=== PATIENT | male | born 1940 | race Caucasian/White ===

== ENCOUNTER → 2017-04-15 | Outpatient (CLI) | payer MEDICARE ==
[~2017-04-15] MED LIST: ALFU10TA PO; AMLO10TA; AMLO10TA PO; AMLO5TAB2 PO; ASP325TEC PO; ATOR80TA2 PO; ATOR80TA75; ATOR80TA75 PO; CPR500T PO; DOXY100C2; DOXY100C2 PO; FINA5TAB6 PO; LISI1TAB6 PO; LISI1TAB8 PO; NFNEB10T PO; POLY255P PO
--- NOTE | 2017-04-15 16:14 | Diagnostic Imaging Report ---
PROCEDURE: MRI lumbar spine. TECHNIQUE: Multiplanar, multisequence MRI of the lumbar spine was performed without contrast. INDICATION: Back pain. COMPARISON: 05/11/13 exam. FINDINGS: There is satisfactory alignment of the lumbar spine. The vertebral body heights are preserved. There is disc desiccation at all levels. There is mild disc height loss at L3/L4 and L5/S1 levels. There is mild bone marrow edema around endplates at L5/S1 disc. There is also mild marrow edema in the pars interarticularis of L4 and L5 levels bilaterally. This is favored to be secondary to facet degenerative changes. The cauda equina and conus medullaris appear grossly unremarkable. T12/L1: There is a minimal disc protrusion at the left paracentral region with an annular tear seen. No central canal, lateral recess or foraminal stenosis. L1/L2: No disc herniation. No spinal canal or foraminal stenosis. L2/L3: No disc herniation. There is mild facet hypertrophy. No central canal, lateral recess or foraminal stenosis. L3/L4: There is a mild disc bulge and mild facet hypertrophy seen. There is no central canal or lateral recess stenosis. The foramina demonstrate mild narrowing on the right side and moderate narrowing on the left. L4/L5: There is a mild disc bulge and moderate facet hypertrophy. No central canal or lateral recess stenosis. There is moderate foraminal stenosis. L5/S1: There is minimal disc bulge and mild facet hypertrophy. No central canal or lateral recess stenosis. There is severe foraminal stenosis on the right compressing the exiting right L5 spinal nerve. Moderate foraminal stenosis on the left side is seen. When compared to 05/11/2013, the foraminal stenosis on the right at L5/S1 is worse. Also previously seen intraforaminal lesion on the left side at L3/L4, probably an extruded disc is not present at this time. 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 Other findings as above. Dictated by: Dictated on workstation # [id number]
== END ==
LOC: RAD 15:02
PROVIDERS: ATTEND Family Medicine
DX: M54.16 Radiculopathy, lumbar region (principal); M48.06 Spinal stenosis, lumbar region
CPT/HCPCS: 72148

== ENCOUNTER → 2019-07-05 | Outpatient (CLI) | payer MEDICARE ==
[~2019-07-05] MED LIST changes: +ACET325T38 PO; +AMLO5TAB9 PO; +ASPI325T32 PO; +ATOR40TA70 PO; +ATOR80TA76 PO; +CARV3.12 PO; +CYAN250010 PO; +LACT1CAP74 PO; +METO-333 PO; +TAMS0.4C98 PO
== END ==
LOC: RAD 11:43
PROVIDERS: ATTEND Internal Medicine Cardiovascular Disease
DX: I08.0 Rheumatic disorders of both mitral and aortic valves (principal); I25.10 Atherosclerotic heart disease of native coronary artery without angina pectoris; I10 Essential (primary) hypertension; E78.2 Mixed hyperlipidemia; Z82.49 Family history of ischemic heart disease and other diseases of the circulatory system
CPT/HCPCS: 93306

== ENCOUNTER → 2019-07-07 | Outpatient (CLI) | payer MEDICARE ==
[~2019-07-07] VITALS: Ht 165.1 cm; Wt 71.2 kg
[~2019-07-07] MED LIST changes: -ACET325T38 PO; -AMLO5TAB9 PO; -ASPI325T32 PO; -ATOR40TA70 PO; -ATOR80TA76 PO; -CARV3.12 PO; +CATHETER FLUSH 10 ML SYR IV PRN; -CYAN250010 PO; -LACT1CAP74 PO; -METO-333 PO; +REGADENOSON 0.4 MG/5 ML SYR (LEXISCAN) IV ONE; -TAMS0.4C98 PO
--- NOTE | 2019-07-08 09:33 | STRESS TEST ---
DATE OF SERVICE: LEXISCAN MYOVIEW STRESS TEST REFERRING PHYSICIAN: Dr. Hassan. Baseline heart rate is 74, baseline blood pressure 136/85. Baseline EKG is sinus rhythm with left bundle branch block. In summary, the patient was injected with 9.9 mCi of technetium-99 Myoview and the resting images were obtained. Then, the patient received 0.4 mg of Lexiscan followed by 30.2 mCi of technetium-99 Myoview. Throughout the test, there were no EKG changes. The resting and stress images were reviewed and compared in the short axis, horizontal long axis, and vertical long axis views. Review of the images showed decreased uptake involving the mid to apical anterior wall and anterior septum with subtle reversibility. SSS is 7, SDS 1, TID value is increased of 1.22. On the gated images, the left ventricle appeared to be in normal size with hypokinesia of the anterior wall and anterior septum. Calculated ejection fraction 56%. CONCLUSION: 1. The patient tolerated Lexiscan well. 2. Baseline left bundle branch block persisted throughout test. 3. Fixed defect involving the mid to apical anterior wall and anterior septum with mild jordan-infarct reversibility. 4. Transient ischemic dilatation of 1.22 value. 5. Normal left ventricular size with mild hypokinesia of the anterior wall and anterior septum. Calculated ejection fraction 56%. Job ID: [id number] DocumentID: [id number] Dictated Date: 07/08/2019 07:12:33 Case Coordinator Date: 07/08/2019 09:32:30 Dictated By: MANJU AGOSTO MD
== END ==
LOC: RAD 11:42
PROVIDERS: ATTEND Internal Medicine Cardiovascular Disease
DX: I44.7 Left bundle-branch block, unspecified (principal); I51.89 Other ill-defined heart diseases; I25.10 Atherosclerotic heart disease of native coronary artery without angina pectoris; I10 Essential (primary) hypertension; E78.2 Mixed hyperlipidemia; Z82.49 Family history of ischemic heart disease and other diseases of the circulatory system
CPT/HCPCS: 78452; 93017

== ENCOUNTER → 2019-08-03 | Outpatient (CLI) | payer MEDICARE ==
[~2019-08-03] MED LIST changes: +ACET325T38 PO; +AMLO5TAB9 PO; +ASPI325T32 PO; +ATOR40TA70 PO; +ATOR80TA76 PO; +CARV3.12 PO; +CYAN250010 PO; +HOLD METFORMIN - RECEIVED CONTRAST 20 ML VIAL IV SCH; +IOHEXOL 350 MG/ML 100 ML (OMNIPAQUE 350) VIAL IV ONE; +LACT1CAP74 PO; +METO-333 PO; +NS 100 ML (IVPB) BAG IV ONE; -REGADENOSON 0.4 MG/5 ML SYR (LEXISCAN) IV ONE; +TAMS0.4C98 PO
[2019-08-03 11:15] LABS: BUN/CREATININE RATIO 14; CREATININE SERUM 0.77 MG/DL (0.60-1.30); GFR ESTIMATED > 60
--- NOTE | 2019-08-03 12:35 | Diagnostic Imaging Report ---
PROCEDURE: CT chest with contrast only. TECHNIQUE: Multiple contiguous axial images were obtained through the chest after administration of intravenous contrast. Auto Exposure Controls were utilized during the CT exam to meet ALARA standards for radiation dose reduction. INDICATION: Lung nodule. FINDINGS: There are no prior CT chest examinations available for comparison. The recent plain film examination of the chest performed on 07/14/2019 did note a 9 mm nodular density overlying the right mid lung. It was not certain if this was related to a pulmonary nodule or merely this was secondary to superimposition of the bronchovascular structures. On this exam, there is no discrete solid mass evident in this area. I suspect that the density seen on the plain film exam was in fact due to superimposition. The right lung is generally clear as is the left lung. There is no sign of failure, pneumonia, or pleural effusion to indicate an acute abnormality either. The borderline cardiomegaly noted previously and the sternotomy wires and surgical clips are again evident and no different. There are coronary artery calcifications evident. The aorta is not abnormally dilated, and there is no sign of a dissection. There is no defect within the pulmonary arteries to indicate a pulmonary embolus. There is no mediastinal or hilar adenopathy. The thyroid gland is generally unremarkable. The sections through the upper abdomen fail to show any sign of an acute abnormality. The liver is of lower density than usually seen, and this appearance does suggest fatty metamorphosis. There is atherosclerotic plaque involving the origins of the superior mesenteric artery and both renal arteries, but there is no evidence for a hemodynamically significant stenosis. The bone windows show no sign of a fracture or of a destructive lesion. IMPRESSION: 1. There is no evidence for a parenchymal lung mass. The density seen overlying the right mid lung on the plain film exam is felt to be secondary to superimposition. 2. There is no evidence for an acute cardiopulmonary abnormality. 3. There is borderline cardiomegaly, coronary artery disease, and evidence of prior cardiac surgery. Dictated by: Dictated on workstation # [id number]
== END ==
LOC: RAD 10:31
PROVIDERS: ATTEND Nurse Practitioner Family
DX: I25.10 Atherosclerotic heart disease of native coronary artery without angina pectoris (principal); I51.7 Cardiomegaly; J98.4 Other disorders of lung; G47.9 Sleep disorder, unspecified; R29.818 Other symptoms and signs involving the nervous system; Z98.890 Other specified postprocedural states
CPT/HCPCS: 36415; 71260; 82565; 84520

== ENCOUNTER → 2021-07-24 | Outpatient (CLI) | payer MEDICARE ==
[~2021-07-24] MED LIST changes: +AMLO-250 PO; -AMLO5TAB9 PO; -CATHETER FLUSH 10 ML SYR IV PRN; -HOLD METFORMIN - RECEIVED CONTRAST 20 ML VIAL IV SCH; -IOHEXOL 350 MG/ML 100 ML (OMNIPAQUE 350) VIAL IV ONE; +LISI1TAB46 PO; -NS 100 ML (IVPB) BAG IV ONE; -TAMS0.4C98 PO; +TMSL.4C PO
== END ==
LOC: CARD 10:30
PROVIDERS: ATTEND Physician Assistant
DX: I34.0 Nonrheumatic mitral (valve) insufficiency (principal); I11.9 Hypertensive heart disease without heart failure; I25.10 Atherosclerotic heart disease of native coronary artery without angina pectoris
CPT/HCPCS: 93306

== ENCOUNTER → 2021-07-24 | Outpatient (CLI) | payer MEDICARE ==
[~2021-07-24] MED LIST changes: +GADOBUTROL 10 MMOL/10 ML (GADAVIST) VIAL IV ONE
--- NOTE | 2021-07-24 13:14 | Diagnostic Imaging Report ---
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 Exam: MRI of the brain performed without and with 7 cc of Gadavist IV contrast. Sequences include axial DWI, ADC map, axial gradient echo, axial T2, axial FLAIR, axial T1, axial 3D FIESTA, axial T1 post IV contrast, coronal T1 fat-sat post IV contrast, and sagittal T1 post IV contrast. Comparison: Head CT without contrast dated 12/06/2013. Findings: There is no evidence of acute cerebral infarct, intracranial hemorrhage, or gross mass effect. There is brain parenchymal volume loss. There are multiple focal, patchy mildly confluent areas of high T2 signal white matter changes throughout both cerebral hemispheres and periventricular regions, likely representing chronic small vessel ischemic disease and leukoaraiosis. 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 There is normal escalante-white matter distinction. There is no significant midline shift or herniation. The [place] vascular structures show no gross abnormality as visualized. There is no evidence of hydrocephalus. The basal cisterns are unremarkable. The skull, extracranial soft tissue, and orbits are unremarkable. There is minimal mucosal thickening involving ethmoid sinus. Temporal bones show no significant abnormality. Axial 3-D FIESTA sequence shows no significant abnormality involving the basal cistern regions. There is no masslike enhancement involving the right temporal bone structures or basal cistern regions. There is no gross abnormality involving the 7th and 8th cranial nerves and the remainder of the visualized cranial nerves. IMPRESSION: 1: There is no evidence of metastatic disease. There is no acute intracranial process. There is no retrocochlear mass: or abnormal enhancement of the temporal bone regions or basal cistern regions. 2: There is brain parenchymal volume loss, chronic small vessel ischemic disease, and leukoaraiosis. 3: There is interval development of a small chronic infarct involving the shaye. Dictated by: Dictated on workstation # [id number]
== END ==
LOC: RAD 09:55
PROVIDERS: ATTEND Otolaryngology Otolaryngology/Facial Plastic Surgery
DX: I67.82 Cerebral ischemia (principal); I67.81 Acute cerebrovascular insufficiency; H91.91 Unspecified hearing loss, right ear; Z85.828 Personal history of other malignant neoplasm of skin
CPT/HCPCS: 70553

== ENCOUNTER → 2022-07-30 | Outpatient (CLI) | payer MEDICARE ==
[~2022-07-30] MED LIST changes: -GADOBUTROL 10 MMOL/10 ML (GADAVIST) VIAL IV ONE
== END ==
LOC: CARD 08:30
PROVIDERS: ATTEND Internal Medicine Cardiovascular Disease
DX: I34.0 Nonrheumatic mitral (valve) insufficiency (principal); I11.9 Hypertensive heart disease without heart failure; I25.10 Atherosclerotic heart disease of native coronary artery without angina pectoris
CPT/HCPCS: 93306

== ENCOUNTER → 2022-08-07 | Outpatient (CLI) | payer MEDICARE ==
[~2022-08-07] VITALS: Ht 165 cm; Wt 70.0 kg
[~2022-08-07] MED LIST changes: +CATHETER FLUSH 10 ML SYR IVP PRN; +REGADENOSON 0.4 MG/5 ML SYR (LEXISCAN) IV ONE
[2022-08-07 09:02] VITALS: BP 178/93
--- NOTE | 2022-08-07 11:53 | Cardiology Stress Test Report ---
Stress Test Report Date of Procedure/Referring: Date of Procedure: Aug 07, 2022 PCP Kristin Hassan MD Admitting Physician Admitting Physician: Attending Physician: Alba Sanderson MD Indications: LBBB Baseline Heart Rate: 81 Baseline Blood Pressure: Blood Pressure Systolic: 178 Blood Pressure Diastolic: 93 Baseline Vitals Vital Signs Date Time Temp Pulse Resp B/P (MAP) Pulse Ox O2 Delivery O2 Flow Rate FiO2 08/07/22 09:02 81 178/93 (121) 98 Baseline EKG: Baseline EKG: LBBB Summary After explaining the procedure to the patient, he signed a consent and then brought to the stress nuclear laboratory. Patient received 0.4 mg Lexiscan for stress test, ECG, heart rate and blood pressure were monitored continuously. Resting and stress dose of radio tracer were injected, imaging was acquired and reviewed in short axis, horizontal long axis and vertical long axis views. TID: 1.17 SSS: 6 SDS: 3 EF: 53 1. Patient tolerated Lexiscan well 2. Baseline left bundle branch block persisted during test 3. Reversible ischemia involving the anterior wall and anterolateral wall 4. Normal left ventricular size, ejection fraction 53% Copy Copies To 1: KRISTIN HASSAN MD, BASHAR J MD Aug 07, 2022 11:53
== END ==
LOC: CARD 08:00
PROVIDERS: ATTEND Internal Medicine Cardiovascular Disease
DX: I44.7 Left bundle-branch block, unspecified (principal); I25.10 Atherosclerotic heart disease of native coronary artery without angina pectoris; I10 Essential (primary) hypertension
CPT/HCPCS: 78452; 93017; A9502

== ENCOUNTER → 2022-08-19 | Outpatient (CLI) | payer MEDICARE ==
[~2022-08-19] MED LIST changes: -CATHETER FLUSH 10 ML SYR IVP PRN; +INCLISIRAN (LEQVIO) 284 MG/1.5 ML SYRINGE SQ ONE; -REGADENOSON 0.4 MG/5 ML SYR (LEXISCAN) IV ONE
[2022-08-19 13:00] VITALS: BP 154/76
== END ==
LOC: SDC 12:45
PROVIDERS: ATTEND Internal Medicine Cardiovascular Disease
DX: E78.2 Mixed hyperlipidemia (principal)
CPT/HCPCS: 96372